=== PATIENT | female | born 1990 ===

== ENCOUNTER 2018-10-15 15:06 | Emergency (ER) | payer SELFPAY ==
[2018-10-15 15:06] VITALS: BMI 36.6
[2018-10-15 15:16] VITALS: RESP 16; O2SAT 98
[2018-10-15] MEDS ORDERED: Sodium Chloride 0.9% 1,000 ML IV STA (15:41)
[2018-10-15 16:11] LABS: VENOUS BLOOD GAS BASE EXCESS 3.2 mmol/L (0.0-2.0); VENOUS BLOOD GAS PCO2 45 mmHg (40-60); VENOUS BLOOD GAS PO2 36 mm/Hg (30-55); VENOUS BLOOD PH 7.41 (7.32-7.43)
[2018-10-15 16:15] LABS: BASO # 0.1 K/uL (0.0-0.2); BASO % 0.6 % (0.0-2.0); EOS # 0.2 K/uL (0.0-0.7); EOS % 1.9 % (0.0-4.0); LYMPH # 2.8 K/uL (1.0-4.3); LYMPH % 29.4 % (20.0-40.0); MEAN CORPUSCULAR HEMOGLOBIN 29.7 pg (27.0-31.0); MEAN CORPUSCULAR HGB CONC 34.1 g/dL (33.0-37.0); MEAN PLATELET VOLUME 9.3 fl (7.2-11.7); MONO # 0.6 K/uL (0.0-0.8); MONO % 6.3 % (0.0-10.0); NEUT # 5.8 K/uL (1.8-7.0); NEUT % 61.8 % (50.0-75.0); NRBC % 0.1 % (0.0-0.0); RBC 4.39 Mil/uL (3.80-5.20); RED CELL DISTRIBUTION WIDTH 13.5 % (11.5-14.5); WHITE BLOOD COUNT 9.4 K/uL (4.8-10.8)
[2018-10-15 16:21] LABS: SQUAMOUS EPITHIAL 2 /hpf (0-5); URINE BACTERIA OCC (<OCC); URINE BILIRUBIN NEGATIVE (NEGATIVE); URINE BLOOD NEGATIVE (NEGATIVE); URINE CLARITY CLEAR (Clear); URINE COLOR AMBER (YELLOW); URINE GLUCOSE (UA) NEG (Normal); URINE LEUKOCYTE ESTERASE MOD Leu/uL (Negative); URINE PROTEIN NEGATIVE (NEGATIVE)
[2018-10-15 16:25] LABS: ALBUMIN 3.6 g/dL (3.5-5.0); ALT/SGPT 23 U/L (9-52); AST/SGOT 20 U/L (14-36); BLOOD UREA NITROGEN 10 mg/dl (7-17); CALCIUM 8.6 mg/dL (8.4-10.2); GFR NON-AFRICAN AMERICAN > 60
--- NOTE | 2018-10-15 16:27 | ED PDOC ---
HPI: Female Pain Time Seen by Provider: 10/15/18 15:36 Chief Complaint (Nursing): Female Genitourinary Chief Complaint (Provider): Female Genitourinary History Per: Patient History/Exam Limitations: no limitations Onset/Duration Of Symptoms: Days (x1 month) Current Symptoms Are (Timing): Still Present Additional Complaint(s): 28 y/o female presents to the ED for evaluation of mild pain with urination that recently became severe, onset one month ago. Patient states the pain became severe yesterday and worsened with urination. Patient reports of urinating every ten minutes, only a few drops at a time. Patient describes the pain as painful and burning. Patient states pain radiates to the the bilateral back and is associated with a subjective fever and chills. Patient states she has had UTI previously but reports this feels much worse. Patient additionally reports of taking pyridium with no relief of pain prescribed to her by her PMD. PMD: Dr. Chamorro Past Medical History Reviewed: Historical Data, Nursing Documentation, Vital Signs Vital Signs: Last Vital Signs Temp 98.6 F 10/15/18 15:15 Pulse 87 10/15/18 15:15 Resp 16 10/15/18 15:15 BP 142/81 10/15/18 15:15 Pulse Ox 98 10/15/18 15:15 - Medical History PMH: No Chronic Diseases - Surgical History Surgical History: No Surg Hx - Family History Family History: States: Unknown Family Hx - Home Medications Home Medications: Ambulatory Orders Medication Instructions Recorded Miconazole Nitrate [Monistat 3] 1 each VG DAILY #1 kit 11/02/16 Nitrofurantoin Macrocrystals 100 mg PO BID #14 cap 11/02/16 [Macrobid] Sulfamethoxazole/Trimethoprim 1 tab PO BID #28 tab 10/15/18 [Bactrim DS 800 mg-160 mg] - Allergies Allergies/Adverse Reactions: Allergies Allergy/AdvReac Type Severity Reaction Status Date / Time No Known Allergies Allergy Verified 11/02/16 09:40 Review of Systems ROS Statement: Except As Marked, All Systems Reviewed And Found Negative Constitutional: Positive for: Fever, Chills Genitourinary Female: Positive for: Dysuria, Frequency Physical Exam - Reviewed Nursing Documentation Reviewed: Yes Vital Signs Reviewed: Yes - Physical Exam Appears: Positive for: Uncomfortable Head Exam: Positive for: ATRAUMATIC, NORMOCEPHALIC Skin: Positive for: Normal Color, Warm, Dry Eye Exam: Positive for: Normal appearance, EOMI, PERRL Neck: Positive for: Normal, Painless ROM Cardiovascular/Chest: Positive for: Regular Rate, Rhythm. Negative for: Murmur Respiratory: Positive for: Normal Breath Sounds. Negative for: Respiratory Distress Gastrointestinal/Abdominal: Positive for: Soft, Tenderness (suprapubic tenderness) Back: Positive for: L CVA Tenderness, R CVA Tenderness Extremity: Positive for: Normal ROM. Negative for: Deformity Neurologic/Psych: Positive for: Alert, Oriented (x3). Negative for: Motor/Sensory Deficits - Laboratory Results Result Diagrams: 10/15/18 16:10 10/15/18 16:10 - ECG O2 Sat by Pulse Oximetry: 98 (RA) Pulse Ox Interpretation: Normal Medical Decision Making Medical Decision Making: Time: 1541 A/P: Workup for UTI vs pyelonephritis -- IV fluids, labs with UA and Urine Culture ordered. -- Antibiotics given -- Reassess patient. Patient most likely discharge home as patient is non-toxic appearing. -- VBG -- CMP -- CBC with Differentials -- Sodium Chloride IV 1000 mls/hr -- Toradol 30 mg IVP -- Urine Culture -- Urinalysis 1814 Labs reviewed and show negative elevated WBC or lactate. UA positive for nitrate. Based on symptoms with flank pain, will treat for pyelonephritis. First dose of Bactrim was given in the ED. Patient is discharge with a prescription of Bactrim and instructed to follow up with PMD. Scribe Attestation: Documented by Cynthia Walter, acting as a scribe for Ava Chauhan MD. Provider Scribe Attestation: All medical record entries made by the Scribe were at my direction and personally dictated by me. I have reviewed the chart and agree that the record accurately reflects my personal performance of the history, physical exam, medical decision making, and the department course for this patient. I have also personally directed, reviewed, and agree with the discharge instructions and disposition. Disposition - Clinical Impression Clinical Impression: Genitourinary Pain, UTI (urinary tract infection), Pyelonephritis - Patient ED Disposition Is Patient to be Admitted: No - Disposition Disposition: Routine/Home Disposition Time: 18:14 Additional Instructions: Take medications as prescribed. Follow up with primary medical doctor. Return to the emergency department if symptoms worsen or if new symptoms develop. Prescriptions: Sulfamethoxazole/Trimethoprim [Bactrim DS 800 mg-160 mg] 1 tab PO BID #28 tab Instructions: Urinary Tract Infection, Adult (DC) Forms: [email or web address] (Georgian) Print Language: FILIPINO
[2018-10-15] MEDS ORDERED: Tmp-Smz 800 mg-160 mg DS Tab PO STA (18:12)
[2018-10-15] MEDS ORDERED: Tmp-Smz 800 mg-160 mg DS Tab ONE (18:47)
[2018-10-15 19:37] VITALS: BP 126/70; PULSE 76; TEMP 98.2
--- NOTE | 2018-10-17 13:46 | ED PDOC ---
ED Additional Note - Date & Time of Evaluation Date of Evaluation: 10/17/18 Time of Evaluation: 13:45 - Physician Additional Note Physician Additional Note: Spoke with patient re: Urine culture resuls. Pt discharged on Bactrim for UTI but resistant. Pt informed of resistant bacteria. States symptoms are slightly better. Script for Cipro 500mg PO BID x 5 days called [facility] . Pt advised to return to ER if develops fever or worsening sx. Pt has appointment in clinic on 10/30
== END 2018-10-15 18:55 | disposition home or self-care (01) ==
LOC: H.ER 15:06
DX: N12 Tubulo-interstitial nephritis, not specified as acute or chronic (principal); N39.0 Urinary tract infection, site not specified
CPT/HCPCS: 80053; 81003; 82803; 85025; 87086; 87181; 96361; 96374; 99284; J1885; J7030

== ENCOUNTER 2018-10-29 15:28 | Emergency (ER) | payer SELFPAY ==
[2018-10-29 15:29] VITALS: BMI 36.6
[2018-10-29 15:36] VITALS: RESP 16
[2018-10-29] MEDS ORDERED: Sodium Chloride 0.9% 1,000 ML IV STA (15:48)
[2018-10-29] MEDS ORDERED: Piperacillin/Tazobact 3.375 GM in Sodium Chloride 0.9% 100 ML IVPB STA (15:48)
--- NOTE | 2018-10-29 15:59 | ED PDOC ---
HPI: Female Pain Time Seen by Provider: 10/29/18 15:50 Chief Complaint (Nursing): Female Genitourinary Chief Complaint (Provider): Left flank pain History Per: Patient History/Exam Limitations: no limitations Onset/Duration Of Symptoms: Days Current Symptoms Are (Timing): Still Present Quality Of Discomfort: "Pain" Associated Symptoms: Urinary Symptoms. denies: Fever, Chills, Vomiting Additional Complaint(s): 28 year old female presents to the ED for an evaluation of left flank pain and urinary symptoms. Patient had a history of UTI in the past and was seen in the ED where she was prescribed Cipro 500mg for 1 week for UTI as noted. She reports of painful urination. Otherwise, patient denies vomiting, fever or chills. PMD: [facility] Past Medical History Reviewed: Historical Data, Nursing Documentation, Vital Signs Vital Signs: Last Vital Signs Temp 98.3 F 10/29/18 15:34 Pulse 80 10/29/18 15:34 Resp 16 10/29/18 15:34 BP 158/91 H 10/29/18 15:34 Pulse Ox 98 10/29/18 15:34 - Medical History PMH: No Chronic Diseases - Family History Family History: States: Unknown Family Hx - Social History Current smoker - smoking cessation education provided: No Alcohol: None Drugs: Denies - Home Medications Home Medications: Ambulatory Orders Medication Instructions Recorded Miconazole Nitrate [Monistat 3] 1 each VG DAILY #1 kit 11/02/16 Nitrofurantoin Macrocrystals 100 mg PO BID #14 cap 11/02/16 [Macrobid] Sulfamethoxazole/Trimethoprim 1 tab PO BID #28 tab 10/15/18 [Bactrim DS 800 mg-160 mg] Ciprofloxacin HCl [Cipro] 500 mg PO BID #14 tablet 10/29/18 Naproxen 375 mg PO Q8 PRN #21 tablet 10/29/18 - Allergies Allergies/Adverse Reactions: Allergies Allergy/AdvReac Type Severity Reaction Status Date / Time No Known Allergies Allergy Verified 11/02/16 09:40 Review of Systems ROS Statement: Except As Marked, All Systems Reviewed And Found Negative Constitutional: Negative for: Fever, Chills Gastrointestinal: Negative for: Vomiting Genitourinary Female: Positive for: Dysuria, Frequency, Other (UTI in the past) Musculoskeletal: Positive for: Back Pain (left flank) Physical Exam - Reviewed Nursing Documentation Reviewed: Yes Vital Signs Reviewed: Yes - Physical Exam Appears: Positive for: Non-toxic, No Acute Distress Head Exam: Positive for: ATRAUMATIC, NORMAL INSPECTION, NORMOCEPHALIC Skin: Positive for: Normal Color, Warm, Dry. Negative for: Rash Eye Exam: Positive for: Normal appearance Gastrointestinal/Abdominal: Positive for: Soft, Tenderness (mild epigastric ) Back: Negative for: Normal Inspection (left flank pain) Neurologic/Psych: Positive for: Alert, Oriented (x3). Negative for: Motor/Sensory Deficits - Laboratory Results Result Diagrams: 10/29/18 16:50 10/29/18 16:50 - ECG O2 Sat by Pulse Oximetry: 98 (RA) Pulse Ox Interpretation: Normal - Progress ED Course And Treament: Patient's older records reviewed which present Ecoli is sensitive to Macobid, Cipro and Zosyn seen by family med resident d/w Dr. Harmon. patient to be d/c home with cipro and f/u with clinic tomorrow. Medical Decision Making Medical Decision Making: Time: 1545 Initial Plan: Venous Blood Gas Shock CMP CBC w/ Differential Chlamydia/GC RNA, TMA Normal Saline 500mls/hr Toradol 15mg Zosyn 3.375gm Sodium Chloride 0.9% 100ml Zofran Injection Blood culture Urine culture Urinalysis Reevaluation 1858 CT Abd/Pelvis w/o contrast FINDINGS: LUNG BASES: The lung bases appear clear. No pleural effusions are seen. LIVER: Unremarkable. GALLBLADDER AND BILE DUCTS: The gallbladder appears within normal limits. No radioopaque gallstones are seen. No biliary ductal dilatation is evident. PANCREAS: Unremarkable. SPLEEN: Unremarkable. ADRENAL GLANDS: Unremarkable. KIDNEYS, URETERS, AND BLADDER: There are multiple nonobstructing left renal calculi 2 of the larger calculi measuring 9 mm each. There is no hydronephrosis or hydroureter. STOMACH AND BOWEL: Unremarkable appearance of the stomach and bowel. No evidence of bowel obstructi on. No evidence suggesting enteritis or colitis. APPENDIX: No evidence of acute appendicitis on CT examination. PERITONEUM: No free fluid. No free air. LYMPH NODES: No lymphadenopathy is evident. VASCULATURE: No evidence of abdominal aortic aneurysm. BONES: No aggressive appearing osseous lesion. No acute osseous pathology evident. IMPRESSION: Multiple nonobstructing left renal calculi largest measuring 9 mm in dimension. There are no suspicious mass or lymphadenopathy or free fluid collection. If symptoms persist correlation with a dedicated contrast-enhanced study recommended. Scribe Attestation: Documented by Patricia Orona, acting as a scribe for Abran Medina PA-C. Provider Scribe Attestation: All medical record entries made by the Scribe were at my direction and personally dictated by me. I have reviewed the chart and agree that the record accurately reflects my personal performance of the history, physical exam, medical decision making, and the department course for this patient. I have also personally directed, reviewed, and agree with the discharge instructions and disposition. Disposition - Clinical Impression Clinical Impression: Pyelonephritis - Patient ED Disposition Is Patient to be Admitted: No - Disposition Disposition: Routine/Home Disposition Time: 20:20 Condition: FAIR Prescriptions: Ciprofloxacin HCl [Cipro] 500 mg PO BID #14 tablet Naproxen 375 mg PO Q8 PRN #21 tablet PRN Reason: Pain, Moderate (4-7) Instructions: Kidney Infection (DC) Forms: [facility] ED School/Work Excuse
[2018-10-29 16:57] LABS: BASO % 0.5 % (0.0-2.0); EOS # 0.2 K/uL (0.0-0.7); EOS % 2.6 % (0.0-4.0); HEMOGLOBIN 14.1 g/dL (12.0-16.0); LYMPH # 2.2 K/uL (1.0-4.3); LYMPH % 29.9 % (20.0-40.0); MEAN CELL VOLUME 86.4 fl (81.0-99.0); MEAN CORPUSCULAR HEMOGLOBIN 29.3 pg (27.0-31.0); MEAN CORPUSCULAR HGB CONC 33.9 g/dL (33.0-37.0); MEAN PLATELET VOLUME 9.3 fl (7.2-11.7); MONO # 0.4 K/uL (0.0-0.8); MONO % 5.2 % (0.0-10.0); NEUT # 4.5 K/uL (1.8-7.0); NEUT % 61.8 % (50.0-75.0); NRBC % 0.1 % (0.0-0.0); RBC 4.82 Mil/uL (3.80-5.20); RED CELL DISTRIBUTION WIDTH 13.3 % (11.5-14.5); WHITE BLOOD COUNT 7.2 K/uL (4.8-10.8)
[2018-10-29 16:58] LABS: VENOUS BLOOD GAS BASE EXCESS -0.9 mmol/L (0.0-2.0); VENOUS BLOOD GAS PCO2 28 mmHg (40-60); VENOUS BLOOD GAS PO2 58 mm/Hg (30-55); VENOUS BLOOD PH 7.49 (7.32-7.43)
[2018-10-29] MEDS ORDERED: Piperacillin/Tazobact 3.375 gm Inj IVPB ONE (16:58)
[2018-10-29 17:04] LABS: SQUAMOUS EPITHIAL 24 /hpf (0-5); URINE BACTERIA RARE (<OCC); URINE BILIRUBIN NEGATIVE (NEGATIVE); URINE BLOOD MODERATE (NEGATIVE); URINE CLARITY CLOUDY (Clear); URINE COLOR YELLOW (YELLOW); URINE GLUCOSE (UA) NEG (NEGATIVE); URINE LEUKOCYTE ESTERASE SMALL Leu/uL (Negative); URINE PROTEIN 30 mg/dL (NEGATIVE); URINE UROBILINOGEN 0.2-1.0 mg/dL (0.2-1.0)
[2018-10-29 17:08] LABS: ALB/GLOB RATIO 1.2 (1.0-2.1); ALBUMIN 4.1 g/dL (3.5-5.0); ALT/SGPT 29 U/L (9-52); AST/SGOT 26 U/L (14-36); BLOOD UREA NITROGEN 9 mg/dl (7-17); GFR NON-AFRICAN AMERICAN > 60
[2018-10-29] MEDS ORDERED: Potassium Chloride 20 mEq ER Tab PO STA (20:20)
[2018-10-29] MEDS ORDERED: Potassium Chloride 20 mEq ER Tab PO ONE (20:28)
[2018-10-29 21:05] VITALS: BP 138/84; PULSE 82; TEMP 98; O2SAT 99
--- NOTE | 2018-10-30 08:51 | CT ---
Date of service: 10/29/2018 PROCEDURE: CT Abdomen and Pelvis without intravenous contrast HISTORY: left flank pain COMPARISON: None. TECHNIQUE: Technique. Contrast dose: Radiation dose: Total exam DLP = 660.25 mGy-cm. This CT exam was performed using one or more of the following dose reduction techniques: Automated exposure control, adjustment of the mA and/or kV according to patient size, and/or use of iterative reconstruction technique. FINDINGS: LOWER THORAX: Unremarkable. LIVER: Unremarkable. No gross lesion or ductal dilatation. GALLBLADDER AND BILE DUCTS: Unremarkable. PANCREAS: Unremarkable. No gross lesion or ductal dilatation. SPLEEN: Unremarkable. ADRENALS: Unremarkable. No mass. KIDNEYS AND URETERS: Left nephrolithiasis measuring up to 9 millimeters. No obstruction. VASCULATURE: Unremarkable. No aortic aneurysm. No aortic atherosclerotic calcification or mural plaque present. BOWEL: Unremarkable. No obstruction. No gross mural thickening. APPENDIX: Unremarkable. Normal appendix. PERITONEUM: Unremarkable. No free fluid. No free air. LYMPH NODES: Unremarkable. No enlarged lymph nodes. BLADDER: Unremarkable. REPRODUCTIVE: Unremarkable. BONES: No acute fracture. OTHER FINDINGS: None. IMPRESSION: Left nephrolithiasis measuring up to 9 millimeters. No obstruction.
== END 2018-10-29 21:18 | disposition home or self-care (01) ==
LOC: H.ER 15:28
DX: N12 Tubulo-interstitial nephritis, not specified as acute or chronic (principal); N20.0 Calculus of kidney; R11.0 Nausea
CPT/HCPCS: 74176; 80053; 81003; 81025; 82803; 83690; 85025; 87040; 87086; 87491; 87591; 96374; 96375; 99284; J1885; J2405; J2543; J7030